=== PATIENT | male | born 1950 | race Caucasian/White ===

== ENCOUNTER 2017-11-23 07:42 | Emergency (ER) | payer MEDICAID, MEDICARE ==
[~2017-11-23] VITALS: Ht 170.2 cm; Wt 109.1 kg
[~2017-11-23 07:42] MED LIST: ASPI-891 PO; ATOR40TA28 PO; DOCU250C91 PO; GLIP10 PO; INSLAN SQ; INSU100V SQ; LEVO50TA4 PO; LISI10TA PO; METF10002 PO; SIMV-261 PO; TERA1CAP4 PO
[2017-11-23 08:12] LABS: GLUCOSE,POINT OF CARE 163 MG/DL (70-110)
[2017-11-23 10:51] VITALS: BP 138/74
== END 2017-11-23 10:52 | disposition left against medical advice (07) ==
LOC: EMS 07:45
DX: R73.9 Hyperglycemia, unspecified (principal); Z53.21 Procedure and treatment not carried out due to patient leaving prior to being seen by health care provider
CPT/HCPCS: 82962